=== PATIENT | male | born 1970 | race Caucasian/White ===

== ENCOUNTER 2019-04-04 08:52 | Emergency (ER) | payer BC ==
--- NOTE | 2019-04-04 09:06 | UC ---
Skin Complaint HPI - HPI Summary HPI Summary: 48-year-old male presents with complaints of tick bite to his right hip. States discovered the tick this morning. He showered yesterday at around 3 PM and did not notice the tick at that time. States that he and his family went to [place] yesterday afternoon to do some hiking. Denies fever, chills, flulike illness, myalgias, joint pain or swelling. - History of Current Complaint Time Seen by Provider: 04/04/19 08:57 Stated Complaint: TICK BITE Hx Obtained From: Patient - Allergy/Home Medications Allergies/Adverse Reactions: Allergies Allergy/AdvReac Type Severity Reaction Status Date / Time No Known Allergies Allergy Verified 04/04/19 09:18 PMH/Surg Hx/FS Hx/Imm Hx Previously Healthy: Yes - Denies significant PMH - Surgical History Surgical History: Yes Surgery Procedure, Year, and Place: Knee bilateral - Family History Known Family History: Positive: Non-Contributory - Social History Occupation: Employed Full-time Lives: With Family Alcohol Use: Occasionally Substance Use Type: None Smoking Status (MU): Never Smoked Tobacco Review of Systems All Other Systems Reviewed And Are Negative: Yes Constitutional: Negative: Fever, Chills Skin: Positive: Other - See HPI Respiratory: Positive: Negative Cardiovascular: Positive: Negative Gastrointestinal: Positive: Negative Genitourinary: Positive: Negative Musculoskeletal: Negative: Arthralgia, Myalgia Neurological: Positive: Negative Is Patient Immunocompromised?: No Physical Exam - Summary Physical Exam Summary: GENERAL APPEARANCE: Well developed, well nourished, alert and cooperative, and appears to be in no acute distress. CARDIAC: Normal S1 and S2. No S3, S4 or murmurs. Rhythm is regular. There is no peripheral edema, cyanosis or pallor. Extremities are warm and well perfused. Capillary refill is less than 2 seconds. Peripheral pulses intact. LUNGS: Clear to auscultation without rales, rhonchi, wheezing or diminished breath sounds. ABDOMEN: Positive bowel sounds. Soft, nondistended, nontender. No guarding or rebound. No masses or hepatosplenomegally. MUSKULOSKELETAL: ROM intact to all extremities. No joint erythema or tenderness. Normal muscular development. Normal gait. SKIN: Small non-engorged tick embedded to right anterior hip with mild localized erythema. Triage Information Reviewed: Yes Vital Signs Reviewed: Yes Course/Dx - Course Course Of Treatment: 48-year-old male presents with complaints of tick bite to his right hip. States discovered the tick this morning. He showered yesterday at around 3 PM and did not notice the tick at that time. States that he and his family went to [place] yesterday afternoon to do some hiking. Denies fever, chills, flulike illness, myalgias, joint pain or swelling. Afebrile. Vital signs stable. Patient had small non-engorged tick embedded to right anterior hip with mild localized erythema. The tick was fully removed using a tick twister. Discussed with the patient based on his history and the fact that the tick was not engorged that there was a low risk for transmission of Lyme disease and prophylactic antibiotics were not recommended. He is to follow-up with his primary care provider as needed. I reviewed signs and symptoms of Lyme disease , anticipatory guidance, and warning symptoms with the patient. Verbalizes understanding and agrees with plan of care. - Differential Diagnoses - Skin Complaint Differential Diagnoses: Local Allergic Reaction, Tick Born Illness - Diagnoses Provider Diagnosis: Tick bite of right hip Discharge - Sign-Out/Discharge Documenting (check all that apply): Patient Departure All imaging exams completed and their final reports reviewed: No Studies - Discharge Plan Condition: Stable Disposition: HOME Patient Education Materials: Tick Bite (ED) Referrals: No Primary Care Phys,NOPCP [Primary Care Provider] - Additional Instructions: Ticks transmit infection only after they have attached and then taken a blood meal from their new host. A tick that has not attached cannot not pass any infection. Since the deer tick that transmits Lyme disease typically feeds for more than 36 hours before transmitting the organisim that causes Lyme disease, the risk of acquiring Lyme disease from an tick bite is extremely small, even in an area where the disease is common. There is no benefit of blood testing for Lyme disease at the time of the tick bite because even people who become infected will not have a positive blood test until approximately two to six weeks after the tick bite. To try to avoid getting bitten by a tick, you can: * Wear shoes, long-sleeved shirts, and long pants when you go outside. Keep ticks away from your skin by tucking your pants into your socks. * Wear light colors so you can spot any ticks that get on your clothes. * Wear bug spray or cream that contains DEET. (Do not use DEET on babies younger than 2 months.) On your clothes and gear, you can use bug repellents that have a chemical called "permethrin." * Shower within 2 hours of being outdoors if you think you have been in an area where there are ticks. * Put dry clothes briefly (for about 4 minutes) in a dryer after being outdoors. * Check your clothes and body for ticks after being outdoors. Be sure to check your scalp, waist, armpits, groin, and backs of your knees. Check your children , too. After a tick bite, you will need to monitor for signs of Lyme disease over the nexter several weeks even if you have been given antibiotics to prevent the infection. Seek immediate medical attention if you develop a bullseye rash, fever, flu-like symptoms including headache, stiff neck, fatigue, muscle aches, joint pain or swelling. - Billing Disposition and Condition Condition: STABLE Disposition: Home
[2019-04-04 09:18] VITALS: BP 137/87
== END 2019-04-04 09:23 | disposition home or self-care (01) ==
LOC: UCEAST 08:52
DX: T63.481A Toxic effect of venom of other arthropod, accidental (unintentional), initial encounter (principal); Y92.9 Unspecified place or not applicable
CPT/HCPCS: 99211; G0463

== ENCOUNTER 2019-06-14 09:13 | Emergency (ER) | payer BC ==
[2019-06-14 09:29] VITALS: BP 137/97
--- NOTE | 2019-06-14 09:56 | UC ---
Skin Complaint HPI - HPI Summary HPI Summary: 48-year-old male presents with one-week history of general malaise, fatigue, myalgias, joint pain, and mild nasal congestion. States 2-3 days ago started developing a circular erythematous rash to his left upper thigh that has increased in size. Reports history of a known tick bite 3 weeks ago. States the tick was not engorged and he removed it right away. Denies fever, chills, headache, neck stiffness, ear pain, sore throat, cough, chest pain, shortness of breath, abdominal pain, nausea, vomiting, or diarrhea. - History of Current Complaint Chief Complaint: UCRash Time Seen by Provider: 06/14/19 09:53 Stated Complaint: BODY ACHES CHILLS RASH Hx Obtained From: Patient Pain Intensity: 7 - Allergy/Home Medications Allergies/Adverse Reactions: Allergies Allergy/AdvReac Type Severity Reaction Status Date / Time No Known Allergies Allergy Verified 06/14/19 09:29 Home Medications: Home Medications Magnesium Glycinate [Mag Glycinate] 100 mg PO DAILY WITH MEAL 06/14/19 [History Confirmed 06/14/19] PMH/Surg Hx/FS Hx/Imm Hx Previously Healthy: Yes - Denies significant PMH - Surgical History Surgical History: Yes Surgery Procedure, Year, and Place: Knee bilateral - Family History Known Family History: Positive: Non-Contributory - Social History Occupation: Employed Full-time Lives: With Family Alcohol Use: Daily Substance Use Type: None Smoking Status (MU): Never Smoked Tobacco Review of Systems All Other Systems Reviewed And Are Negative: Yes Constitutional: Positive: Fatigue. Negative: Fever, Chills Skin: Positive: Rash Eyes: Negative: Drainage, Eye Redness ENT: Positive: Nasal Discharge. Negative: Sore Throat, Ear Ache, Sinus Congestion, Sinus Pain/Tenderness Respiratory: Negative: Shortness Of Breath, Cough Cardiovascular: Negative: Palpitations, Chest Pain Gastrointestinal: Negative: Abdominal Pain, Vomiting, Diarrhea, Nausea Genitourinary: Positive: Negative Musculoskeletal: Positive: Arthralgia, Myalgia Neurological: Negative: Headache Is Patient Immunocompromised?: No Physical Exam - Summary Physical Exam Summary: GENERAL APPEARANCE: Well developed, well nourished, alert and cooperative, and appears to be in no acute distress. EYES: Conjunctiva clear. No drainage. EARS: External auditory canals and tympanic membranes clear, hearing grossly intact. NOSE: Mild nasal congestion. No nasal discharge. THROAT: Pharynx normal. No tonsilar inflammation, swelling, exudate, or lesions. Uvula midline. Oral cavity normal. Teeth and gingiva in good general condition. NECK: Neck supple, non-tender without lymphadenopathy. CARDIAC: Normal S1 and S2. No S3, S4 or murmurs. Rhythm is regular. There is no peripheral edema, cyanosis or pallor. Extremities are warm and well perfused. Capillary refill is less than 2 seconds. Peripheral pulses intact. LUNGS: Clear to auscultation without rales, rhonchi, wheezing or diminished breath sounds. ABDOMEN: Positive bowel sounds. Soft, nondistended, nontender. No guarding or rebound. No masses or hepatosplenomegally. MUSKULOSKELETAL: ROM intact to all extremities. No joint erythema or tenderness. Normal muscular development. Normal gait. SKIN: Skin normal color, texture and turgor. Nontender 12-13 centimeters circular erythematous rash with increased warmth to his proximal anterior thigh. Triage Information Reviewed: Yes Vital Signs: Initial Vital Signs Temp 99.1 F 06/14/19 09:23 Pulse 96 06/14/19 09:23 Resp 18 06/14/19 09:23 BP 137/97 06/14/19 09:23 Pulse Ox 96 06/14/19 09:23 Vital Signs Reviewed: Yes Course/Dx - Course Course Of Treatment: 48-year-old male presents with one-week history of general malaise, fatigue, myalgias, joint pain, and mild nasal congestion. States 2-3 days ago started developing a circular erythematous rash to his left upper thigh that has increased in size. Reports history of a known tick bite 3 weeks ago. States the tick was not engorged and he removed it right away. Denies fever, chills, headache, neck stiffness, ear pain, sore throat, cough, chest pain, shortness of breath, abdominal pain, nausea, vomiting, or diarrhea. Afebrile. Vital signs stable. Patient had a nontender 12-13 centimeters circular erythematous rash with increased warmth to his proximal anterior thigh and otherwise unremarkable exam. Discussed with the patient that his rash was not consistent with an erythema migrans however with his other symptoms and history of tick bite recommending we treat for Lyme disease even though I cannot fully rule out other possibilities such as cellulitis or an upper respiratory infection. Patient is to start doxycycline 100 mg twice a day 2 weeks. He is to follow- up with his primary care provider in 3-5 days if symptoms are not improving. Anticipatory guidance and warning symptoms were reviewed with the patient. Verbalizes understanding and agrees with plan of care. - Differential Diagnoses - Skin Complaint Differential Diagnoses: Cellulitis, Local Allergic Reaction, Tick Born Illness - Diagnoses Provider Diagnosis: Lyme disease Discharge ED - Sign-Out/Discharge Documenting (check all that apply): Patient Departure All imaging exams completed and their final reports reviewed: No Studies - Discharge Plan Condition: Stable Disposition: HOME Prescriptions: Doxycycline Hyclate 100 mg PO BID #28 tablet Patient Education Materials: Lyme Disease (ED) Referrals: No Primary Care Phys,NOPCP [Primary Care Provider] - Additional Instructions: With your symptoms, the suspicious rash, and history of a tick bite I would recommend that we treat you for Lyme disease although I cannot fully rule out other possible causes such as cellulitis or upper respiratory infection. Start doxycycline 100 mg twice a day for 14 days. Do not drink milk, eat milk products, or takes supplements containing calcium for at least 2 hours before after taking this medication as the calcium can affect the absorption. This antibiotic will also make you more sensitive to the sunlight therefore it is recommended that you try to avoid sun exposure while taking. If you must be outdoors take appropriate precautions including sunscreen, long sleeves, and hat. To try to avoid getting bitten by a tick, you can: * Wear shoes, long-sleeved shirts, and long pants when you go outside. Keep ticks away from your skin by tucking your pants into your socks. * Wear light colors so you can spot any ticks that get on your clothes. * Wear bug spray or cream that contains DEET. (Do not use DEET on babies younger than 2 months.) On your clothes and gear, you can use bug repellents that have a chemical called "permethrin." * Shower within 2 hours of being outdoors if you think you have been in an area where there are ticks. * Put dry clothes briefly (for about 4 minutes) in a dryer after being outdoors. * Check your clothes and body for ticks after being outdoors. Be sure to check your scalp, waist, armpits, groin, and backs of your knees. Check your children , too. Follow up with your primary care provider in 3-5 days if no improvement in symptoms. Seek immediate medical attention in the emergency room if you have fever greater than 100.5 F despite taking acetaminophen or ibuprofen, have chest pain , difficulty breathing, severe abdominal pain, persistent vomiting, increased redness or swelling, or have any worsening of symptoms. - Billing Disposition and Condition Condition: STABLE Disposition: Home
== END 2019-06-14 10:26 | disposition home or self-care (01) ==
LOC: UCEAST 09:13
DX: A69.20 Lyme disease, unspecified (principal)
CPT/HCPCS: 99212; G0463